=== PATIENT | male | born 1950 | race Caucasian/White ===

== ENCOUNTER 2020-02-02 07:53 | Outpatient (CLI) | payer MEDICARE, BC ==
[2020-02-02] MEDS ORDERED: REGADENOSON 0.4 MG/5 ML SYRINGE ONE (11:37)
== END 2020-02-02 23:59 | disposition home or self-care (01) ==
LOC: CFH 07:53
PROVIDERS: ATTEND Internal Medicine Cardiovascular Disease
DX: I25.89 Other forms of chronic ischemic heart disease (principal); Z98.61 Coronary angioplasty status
CPT/HCPCS: 78452; 93017; A9502; J2785

== ENCOUNTER → 2020-04-15 | Outpatient (CLI) | payer MEDICARE, BC | END | disposition home or self-care (01) | LOC: CFH 13:59 | PROVIDERS: ATTEND Nurse Practitioner | DX: I12.9 Hypertensive chronic kidney disease with stage 1 through stage 4 chronic kidney disease, or unspecified chronic kidney disease (principal); N17.9 Acute kidney failure, unspecified; E87.5 Hyperkalemia; N18.4 Chronic kidney disease, stage 4 (severe); E11.22 Type 2 diabetes mellitus with diabetic chronic kidney disease | CPT/HCPCS: 76770 ==

== ENCOUNTER 2020-08-06 15:23 | Day surgery (SDC) | payer MEDICARE, BC ==
[~2020-08-06] VITALS: Ht 175.3 cm; Wt 91.0 kg
[2020-08-06] MEDS ORDERED: CHLORHEXIDINE 15 ML UDC ONE (15:54)
[2020-08-06] MEDS ORDERED: LACTATED RINGERS 1,000 ML IV SCH (16:00)
[2020-08-06] MEDS ORDERED: CHLORHEXIDINE 15 ML UDC MM ONE (16:00)
[2020-08-06 16:02] VITALS: BP 178/71
[2020-08-06 16:25] LABS: ALBUMIN 3.8 g/dL (3.4-5.0); ANION GAP 6 mmol/L (5-15); CALCIUM 10.2 mg/dL (8.5-10.1); CHLORIDE 112 mmol/L (98-107)
[2020-08-06 16:29] LABS: ALANINE AMINOTRANSFERASE 19 U/L (12-78); ALKALINE PHOSPHATASE 63 U/L (45-117); BILIRUBIN,TOTAL 0.7 mg/dL (0.2-1.0); CREATININE 2.78 mg/dL (0.7-1.3); TOTAL PROTEIN 8.3 g/dL (6.4-8.2)
[2020-08-06] MEDS ORDERED: CYAN500L4 PO (16:38)
[2020-08-06] MEDS ORDERED: CLOT45CR5 TP (16:38)
[2020-08-06] MEDS ORDERED: ROSU40TA PO (16:38)
[2020-08-06] MEDS ORDERED: CARV12.52 PO (16:38)
[2020-08-06] MEDS ORDERED: INSU100I13 SQ (16:38)
[2020-08-06] MEDS ORDERED: AMLO-211 PO (16:38)
[2020-08-06] MEDS ORDERED: ASCORBIC ACID (16:38)
[2020-08-06] MEDS ORDERED: BISA5TAB5 PO (16:38)
[2020-08-06] MEDS ORDERED: GABA-827 PO (16:38)
[2020-08-06] MEDS ORDERED: ASPI-573 PO (16:38)
[2020-08-06] MEDS ORDERED: INSU200I SQ (16:38)
[2020-08-06] MEDS ORDERED: ATOR20TA86 PO (16:38)
[2020-08-06] MEDS ORDERED: FENTANYL PF 100 MCG/2ML ONE (17:54)
[2020-08-06] MEDS ORDERED: CEFTRIAXONE 1,000 MG ONE (18:11)
[2020-08-06] MEDS ORDERED: BUPIVACAINE/PF 0.5% INFIL ONE (18:22)
[2020-08-06] MEDS ORDERED: EPINEPHRINE 1 MG/ML, 1ML INFIL ONE (18:23)
[2020-08-06] MEDS ORDERED: ALBUTEROL SULFATE 2.5 MG/3 ML NPPB PRN (18:30)
[2020-08-06] MEDS ORDERED: OXYcodone 5 MG/5 ML ORAL.SOL UDC PO PRN (18:30)
[2020-08-06] MEDS ORDERED: ACETAMINOPHEN 325 MG TABLET PO PRN (18:30)
[2020-08-06] MEDS ORDERED: PROMETHAZINE 25 MG/ML, 1ML IV PRN (18:30)
[2020-08-06] MEDS ORDERED: FENTANYL PF 100 MCG/2ML IV PRN (18:30)
[2020-08-06] MEDS ORDERED: HYDROmorphone 2 MG/ML, 1ML IVPush PRN (18:30)
[2020-08-06] MEDS ORDERED: LABETALOL 5MG/ML, 20ML IV PRN (18:30)
[2020-08-06] MEDS ORDERED: hydrALAzine 20 MG/ML, 1ML IV PRN (18:30)
[2020-08-06] MEDS ORDERED: CEFAZOLIN 1,000 MG ONE (18:36)
[2020-08-06] MEDS ORDERED: ROCURONIUM 10MG/ML,5ML ONE (18:36)
[2020-08-06] MEDS ORDERED: ONDANSETRON 2MG/ML, 2ML ONE (18:36)
[2020-08-06] MEDS ORDERED: GLYCOPYRROLATE 0.2MG/1ML, 5ML ONE (18:36)
[2020-08-06] MEDS ORDERED: SUCCINYLCHOLINE 20 MG/ML, 10ML ONE (18:36)
[2020-08-06] MEDS ORDERED: DEXAMETHASONE 4 MG/ML, 1ML ONE (18:36)
[2020-08-06] MEDS ORDERED: NEOSTIGMINE 1 MG/ML, 10ML ONE (18:36)
[2020-08-06] MEDS ORDERED: PROPOFOL 10 MG/ML, 20ML ONE (18:36)
[2020-08-06] MEDS ORDERED: ONDANSETRON 2MG/ML, 2ML IV PRN (20:30)
[2020-08-06] MEDS ORDERED: KETOROLAC 30 MG/1 ML IV PRN (20:30)
[2020-08-06] MEDS ORDERED: HYDROcodone/APAP 5/325 TABLET PO PRN (20:30)
[2020-08-06 21:07] VITALS: BP 147/83
== END 2020-08-06 22:15 | disposition home IV services (08) ==
LOC: OR 15:23 → 4NE 19:55 → OR 22:15
PROVIDERS: ATTEND Urology
DX: R33.9 Retention of urine, unspecified (principal); Z20.828 Contact with and (suspected) exposure to other viral communicable diseases; N99.89 Other postprocedural complications and disorders of genitourinary system; N39.3 Stress incontinence (female) (male); E11.9 Type 2 diabetes mellitus without complications; I25.10 Atherosclerotic heart disease of native coronary artery without angina pectoris; I10 Essential (primary) hypertension; I25.2 Old myocardial infarction; E78.5 Hyperlipidemia, unspecified; Z79.82 Long term (current) use of aspirin; Z79.4 Long term (current) use of insulin; Z79.891 Long term (current) use of opiate analgesic; Z79.899 Other long term (current) drug therapy; Z85.46 Personal history of malignant neoplasm of prostate; Z87.442 Personal history of urinary calculi; Z87.891 Personal history of nicotine dependence; Z88.8 Allergy status to other drugs, medicaments and biological substances; Z90.79 Acquired absence of other genital organ(s); Z92.3 Personal history of irradiation; Z98.890 Other specified postprocedural states; Y83.2 Surgical operation with anastomosis, bypass or graft as the cause of abnormal reaction of the patient, or of later complication, without mention of misadventure at the time of the procedure
CPT/HCPCS: 51102; 80053; 82962; 87635; 93005; J0171; J0330; J0690; J0696; J1100; J2405; J2704; J2710; J3010; J7120; G0378